=== PATIENT | female | born 1980 | race Caucasian/White ===

== ENCOUNTER 2023-09-06 09:42 | Emergency (ER) | payer OTHER ==
[2023-09-06 10:02] VITALS: BP 108/77; PULSE 84; RESP 18; TEMP 98.6; BMI 27.3
[2023-09-06 10:40] LABS: URINE COLOR DK YELLOW
[2023-09-06 10:42] LABS: PH,URINE 6.5 (5.0-8.0); URINE APPEARANCE CLOUDY; URINE BILIRUBIN NEGATIVE (NEGATIVE); URINE GLUCOSE (UA) NEGATIVE (NEGATIVE); URINE KETONE TRACE (NEGATIVE)
[2023-09-06 10:43] LABS: URINE NITRITE NEGATIVE (NEGATIVE); URINE PROTEIN 1+ (NEGATIVE)
[2023-09-06 10:44] LABS: URINE LEUK ESTERASE TRACE (NEGATIVE)
[2023-09-06 11:00] LABS: BASO % 0.4 % (0-2.0); EOS % 0.2 % (0-4.5); HEMATOCRIT 39.3 % (32.4-45.2); HEMOGLOBIN 13.8 GM/dL (10.7-15.3); LYMPH % 12.6 % (8-40); MCH 30.6 pg (25.7-33.7); MCHC 34.9 g/dl (32.0-36.0); MEAN CELL VOLUME 87.6 fl (80-96); MEAN PLT VOLUME 9.8 fl (7.5-11.1); MONO % 3.2 % (3.8-10.2); NEUT % 83.6 % (42.8-82.8); PLATELET COUNT 311 10^3/uL (134-434); RBC 4.49 M/mm3 (3.60-5.2); RDW 13.3 % (11.6-15.6); WHITE BLOOD COUNT 12.2 K/mm3 (4.0-10.0)
[2023-09-06] MEDS ORDERED: ACETAMINOPHEN 500 MG TABLET (FP) ONE (11:06)
[2023-09-06] MEDS: ACETAMINOPHEN 500 MG TABLET (FP) PO ONE (11:09)
[2023-09-06 11:27] LABS: CALCIUM 9.3 mg/dL (8.5-10.1)
[2023-09-06 11:28] LABS: ALBUMIN 4.3 g/dl (3.4-5.0)
[2023-09-06 11:31] LABS: CREATININE 0.7 mg/dL (0.55-1.3)
[2023-09-06 11:33] LABS: BILIRUBIN,TOTAL 0.7 mg/dL (0.2-1)
== END 2023-09-06 14:20 | disposition home or self-care (01) ==
LOC: JER 09:42
DX: O03.9 Complete or unspecified spontaneous abortion without complication (principal)
CPT/HCPCS: 36415; 76817-TC; 80053; 81003; 81015; 84702; 84703; 85025; 86850; 86900; 86901; 87086; 99284-25